=== PATIENT | male | born 1950 | race Caucasian/White ===

== ENCOUNTER 2016-02-25 01:03 | Inpatient (IN) | payer OTHER ==
[~2016-02-25] VITALS: Ht 175.3 cm; Wt 105.8 kg
--- NOTE | ~2016-02-25 | D ---
[facility] [place] [address] DISCHARGE SUMMARY Name: ERIN LEVINE Room #: 204-P [facility] IN M.R.#: [id number] Admission: 02/25/16 Attend Phys: Chucho Deras MD Discharge: 03/07/16 Date of : 46 Report #: [id number] THIS REPORT FOR: //name// CC: Valdemar Deras DATE OF SERVICE: 03/07/2016 The patient was discharged to the long-term facility on 03/07/2016. HISTORY OF PRESENT ILLNESS: The patient is a 66-year-old male with multiple medical problems, who came to the hospital with lethargy. He was found to have healthcare-associated pneumonia. Please refer to the admission H and P, as well as discharge summary from 03/05/2016. HOSPITALIZATION COURSE: The patient stayed in the hospital. His condition did not change. He stayed few more days secondary to placement problem. His IV antibiotics were changed to p.o. antibiotics, Zosyn was changed to Levaquin, that was continued for few more days. The patient's hospital stay was uneventful. His discharge diagnosis is unchanged, as it is stated on discharge summary from 03/05/2016. <ELECTRONICALLY SIGNED> By: Sonam Sevilla MD 03/31/16 1325 1513 1619 Sonam Sevilla MD /nt
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
--- NOTE | ~2016-02-25 | 2DMMODE ---
[facility] [place] [address] 2 D/M-MODE ECHOCARDIOGRAM Name: ABNERERIN ROBLEDO Room #: 204-P [facility] IN M.R.#: [id number] Admission: 02/25/16 Attend Phys: Floresita Delarosa Discharge: 03/07/16 Date of : 46 Date of Service: 03/01/16 1345 Report #: [id number] THIS REPORT FOR: //name// Transthoracic Echocardiography Ordering physician: Sonam Sevilla Referring physician: Valdemar Loaiza Nikoloz G. Block Feeder: RADHA Morgan Indications/History: CHF, COPD, SOA, DM, CAD, HTN, HLP. BP: 149 / HR: 73bpm Height: 69in Weight: 231.5lb 71 Study data: M-mode, complete 2D, complete spectral Doppler, and color Doppler. Location: Bedside. Routine. Image quality was adequate. The study was technically limited due to body habitus. Intravenous contrast (Definity) was administered. 2D measurements Normal Normal LVID ED 55.6mm 36-57 IVS ED 10.7mm 6-11 LVID ES 37.5mm 23-40 LVPW ED 10.9mm 6-11 LA volume 21ml/m2 16-28 AoRoot diam 27.8mm 21-37 index ED LVOT diameter 19mm 18-23 Findings: Left ventricle: The cavity size was normal. Wall thickness was at the upper limits of normal. Systolic function was normal. The estimated ejection fraction was in the range of 60% to 65%. Wall motion was normal. Right ventricle: The cavity size was normal. Systolic function was normal. Right atrium: The atrium was normal in size. Left atrium: The atrium was normal in size. Volume index: 21ml/m2 (S). Aortic valve: Structurally normal valve. Trileaflet. Doppler: There was no stenosis. No regurgitation. [facility] [address] [place] [address] 2 D/M-MODE ECHOCARDIOGRAM Name: ERIN LEVINE Room #: 204-P [facility] IN M.R.#: [id number] Admission: 02/25/16 Attend Phys: Floresita Delarosa Discharge: 03/07/16 Date of : 46 Date of Service: 03/01/16 1345 Report #: [id number] Peak velocity: 155.1cm/s (S). Mitral valve: Structurally normal valve. Doppler: There was no evidence for stenosis. No regurgitation. Peak E-wave velocity: 93.1cm/s. Peak gradient: 3.5mm Hg (D). Peak A-wave velocity: 86.3cm/s. Tricuspid valve: Structurally normal valve. Doppler: There was no evidence for stenosis. Trivial regurgitation. Regurgitant peak velocity: 260.4cm/s. Peak RV-RA gradient: 27mm Hg (S). Pulmonic valve: Structurally normal valve. Doppler: There was no evidence for stenosis. No regurgitation. Pericardium: There was no pericardial effusion. Aorta: Aortic root: The aortic root was normal in size. Pulmonary artery: Systolic pressure was estimated to be 42mm Hg. Diastolic function: Doppler parameters are consistent with abnormal left ventricular relaxation (grade 1 diastolic dysfunction). Systemic veins: Inferior vena cava: The vessel was dilated; respirophasic changes in dimension were absent. Conclusions 1. Left ventricle: Systolic function was normal. The estimated ejection fraction was in the range of 60% to 65%. Wall motion was normal. Doppler parameters are consistent with abnormal left ventricular relaxation (grade 1 diastolic dysfunction). 2. Aortic valve: Structurally normal valve. Trileaflet. There was no stenosis. No regurgitation. 3. Mitral valve: Structurally normal valve. No regurgitation. 4. Pericardium, extracardiac: There was no pericardial effusion. 5. Pulmonary arteries: Systolic pressure was estimated to be 42mm Hg. <ELECTRONICALLY SIGNED> By: Jag Loza MD, [facility] 03/01/16 1528 1345 1528 Jag Loza MD, [facility] /leona
[~2016-02-25 01:03] MED LIST: ABILIFY 5 MG TAB5 MG PO; ADVAIR 250-501 EACH INH; ADVAIR HFA 230M12 GM; ALBUTEROL2.5 MG/0.5 INH; ARICEPT 5 MG TAB5 MG PO; ASPERCREME 1141.7 GM; ASPIRIN81 M2 PO; B-121000 MCG PO; B12INJ; B12INJ PO; BACTROBAN CREAM30 G1; BISCOLAX10 MG RECTAL; CARVEDILOL6.25 MG PO; COLACE100 MG PO; COZAAR 25 MG TA25 M1 PO; CYMBALTA60 MG PO; DEMADEX100 MG PO; DEMADEX20 MG PO; DOXYCYCLINE 10100 MG PO; DUONEB 2.5-0.5 M3 ML INH; ESCITALOPRAM OX10 MG PO; FISH OIL 1,0001 EAC5 PO; FLEET ENEMA118 ML RECTAL; HUMALOG KW200 UNIT/1 SUBQ; HUMALOG100 UNIT/1 SUBQ; HUMULINU500 SUBQ; HYDROCODON-ACE1 EA12; K-DUR 20 MEQ T20 MEQ PO; K-TAB ER20 MEQ PO; KEFLEX500 MG PO; KLOR-CON 1010 MEQ; KLOR-CON20 ME1; LEVEMIR SUBQ; LIORESAL 10 MG10 MG PO; LYRICA 75 MG CA75 MG PO; LYRICA150 MG PO; MELATONIN3 MG PO; METOLAZONE 5 MG5 MG PO; MULTI VITAMIN1 EACH PO; NITROGLYCERIN0.4 MG SUBLING; NITROSTAT0.4 MG SUBLING; NIZORAL120 ML; NORVASC 5 MG TAB5 MG PO; NUVIGIL250 MG PO; OCUVITE TABLET1 EAC1 PO; ONDANSETRON HCL4 M2 PO; OPANA ER20 M1 PO; OXYCODONE HCL 55 MG PO; OXYCODONE HCL15 MG PO; OXYCONTIN10 M1 PO; OXYCONTIN15 MG PO; PANTOPRAZOLE SO40 M1 PO; PERCOCET 5-3251 EACH PO; POTASSIUM CHLO20 ME2 PO; PROAIR HFA8.5 GM; PROTONIX40 M2 PO; PROVIGIL 200 M200 M1 PO; RESTORIL15 MG PO; ROXICODONE5 M2 PO; SENNA PO; SEROQUEL XR50 MG PO; TORSEMIDE20 MG PO; TYLENOL325 MG PO; UNICOMPLEX M TA1 TA1 PO; VALIUM5 MG PO; VITAMIN B-12500 MCG PO; VITAMIN D-32000 UNIT PO; XANAX 0.5 MG0.5 M1 PO; XARELTO10 MG PO; ZOLOFT50 MG PO
[2016-02-25 01:04] VITALS: BP 173/77
[2016-02-25] MEDS ORDERED: ADVAIR HFA115 MCG/21 (01:28)
[2016-02-25] MEDS ORDERED: AMMONIUM LACTATE1 ML (01:29)
[2016-02-25] MEDS ORDERED: KETOCONAZOLE60 GM TOP (01:36)
[2016-02-25] MEDS ORDERED: ATIVAN0.5 MG PO (01:38)
[2016-02-25] MEDS ORDERED: OCUVITE LUTEIN1 EAC1 PO (01:40)
[2016-02-25] MEDS ORDERED: OMEPRAZOLE 20 M20 MG PO (01:41)
[2016-02-25] MEDS ORDERED: ZOFRAN ODT4 MG PO (01:41)
[2016-02-25 03:02] LABS: ABSOLUTE NEUTROPHILS 6.1 thou/uL (1.4-8.2); BASOPHILS 0.8 % (0.0-2.0); EOSINOPHILS 2.3 % (0.0-3.0); HEMATOCRIT 36.6 % (42.0-52.0); HEMOGLOBIN 11.9 gm/dL (14.0-18.0); LYMPHOCYTES 21.1 % (24.0-44.0); MCH 29.2 pg (26.0-34.0); MCHC 32.4 % (28.0-37.0); MCV 90.1 fL (80.0-100.0); MONOCYTES 9.1 % (1.0-8.0); POLYS 66.7 % (36.0-66.0); RBC 4.07 mil/uL (4.50-6.00); RDW 14.3 % (10.5-14.5); WBC 9.2 thou/uL (4.0-11.0)
[2016-02-25 03:08] LABS: CALCIUM 8.6 mg/dL (8.5-10.1); CREATININE 1.5 mg/dL (0.6-1.3); POTASSIUM 4.4 mmol/L (3.5-5.1)
[2016-02-25 03:23] LABS: MANUAL DIFF NO
[2016-02-25 04:07] VITALS: BP 154/79
[2016-02-25 04:18] VITALS: BP 149/77
[2016-02-25 06:32] LABS: LARGE PLATELETS RARE; PLATELET COUNT 140 thou/uL (150-400)
[2016-02-25 08:25] VITALS: BP 153/70
[2016-02-25 09:49] LABS: ALBUMIN 2.9 g/dL (3.4-5.0); DIRECT BILIRUBIN 0.1 mg/dL (<0.1-0.3); TOTAL BILIRUBIN 0.2 mg/dL (<0.1-1.0); TOTAL PROTEIN 6.5 g/dL (6.4-8.2)
[2016-02-25 11:40] VITALS: BP 145/66
[2016-02-25 16:00] VITALS: BP 172/76
[2016-02-26 05:04] VITALS: BP 160/87
[2016-02-26 08:00] VITALS: BP 159/72
[2016-02-26 09:38] LABS: CREATININE 1.4 mg/dL (0.6-1.3); MAGNESIUM 2.3 mg/dL (1.8-2.4); POTASSIUM 4.9 mmol/L (3.5-5.1)
[2016-02-26 11:40] VITALS: BP 158/81
[2016-02-26 16:30] VITALS: BP 176/80
[2016-02-26 19:31] VITALS: BP 144/73
[2016-02-27 01:40] LABS: ABSOLUTE NEUTROPHILS 3.8 thou/uL (1.4-8.2); BASOPHILS 0.6 % (0.0-2.0); EOSINOPHILS 2.7 % (0.0-3.0); HEMATOCRIT 34.3 % (42.0-52.0); HEMOGLOBIN 11.1 gm/dL (14.0-18.0); LYMPHOCYTES 19.7 % (24.0-44.0); MCH 29.2 pg (26.0-34.0); MCHC 32.5 % (28.0-37.0); MONOCYTES 11.4 % (1.0-8.0); PLATELET COUNT 127 thou/uL (150-400); POLYS 65.6 % (36.0-66.0); RBC 3.81 mil/uL (4.50-6.00); RDW 13.8 % (10.5-14.5); WBC 5.8 thou/uL (4.0-11.0)
[2016-02-27 01:42] LABS: MANUAL DIFF NO
[2016-02-27 01:47] LABS: CALCIUM 8.3 mg/dL (8.5-10.1); CREATININE 1.5 mg/dL (0.6-1.3); MAGNESIUM 2.2 mg/dL (1.8-2.4)
[2016-02-27 01:51] LABS: POTASSIUM 3.9 mmol/L (3.5-5.1)
[2016-02-27 03:23] VITALS: BP 195/87
[2016-02-27 07:40] VITALS: BP 173/70
[2016-02-27 12:10] VITALS: BP 168/84
[2016-02-27 16:45] VITALS: BP 160/79
[2016-02-27 19:45] VITALS: BP 145/101
[2016-02-27 23:30] VITALS: BP 181/91
[2016-02-28 04:49] LABS: CALCIUM 8.2 mg/dL (8.5-10.1); CREATININE 1.5 mg/dL (0.6-1.3); POTASSIUM 3.7 mmol/L (3.5-5.1)
[2016-02-28 05:10] VITALS: BP 193/92
[2016-02-28 07:55] VITALS: BP 194/97
[2016-02-28 08:00] LABS: ABSOLUTE NEUTROPHILS 4.5 thou/uL (1.4-8.2); BASOPHILS 0.7 % (0.0-2.0); EOSINOPHILS 4.7 % (0.0-3.0); HEMATOCRIT 34.1 % (42.0-52.0); HEMOGLOBIN 11.4 gm/dL (14.0-18.0); LYMPHOCYTES 18.7 % (24.0-44.0); MCH 29.6 pg (26.0-34.0); MCHC 33.4 % (28.0-37.0); MCV 88.6 fL (80.0-100.0); MONOCYTES 10.6 % (1.0-8.0); PLATELET COUNT 137 thou/uL (150-400); POLYS 65.3 % (36.0-66.0); RBC 3.85 mil/uL (4.50-6.00); RDW 14.5 % (10.5-14.5); WBC 6.9 thou/uL (4.0-11.0)
[2016-02-28 08:03] LABS: MANUAL DIFF NO
[2016-02-28 12:00] VITALS: BP 190/90
[2016-02-28 16:35] VITALS: BP 192/86
[2016-02-28 19:32] VITALS: BP 145/62
[2016-02-29] VITALS (7 sets, daily range): BP systolic 147–214; BP diastolic 57–92
[2016-02-29 04:13] LABS: CALCIUM 8.9 mg/dL (8.5-10.1); CREATININE 1.5 mg/dL (0.6-1.3); POTASSIUM 3.3 mmol/L (3.5-5.1)
[2016-02-29 08:46] LABS: URINE BILIRUBIN NEGATIVE (Negative); URINE BLOOD TRACE (Negative); URINE COLOR YELLOW; URINE GLUCOSE-RANDOM* NEGATIVE (Negative); URINE KETONES NEGATIVE (Negative); URINE NITRITE NEGATIVE (Negative); URINE PROTEIN (DIPSTICK) TRACE (Negative); URINE UROBILINOGEN 0.2 E.U./dl (0.2-1.0)
[2016-03-01 05:11] VITALS: BP 186/93
[2016-03-01 07:35] VITALS: BP 149/71
[2016-03-01 11:40] VITALS: BP 141/71
[2016-03-01 16:00] VITALS: BP 158/79
[2016-03-01 19:42] VITALS: BP 154/80
[2016-03-02 03:40] VITALS: BP 157/76
[2016-03-02 04:00] LABS: BASOPHILS 0.7 % (0.0-2.0); EOSINOPHILS 3.1 % (0.0-3.0); HEMATOCRIT 35.8 % (42.0-52.0); HEMOGLOBIN 11.7 gm/dL (14.0-18.0); LYMPHOCYTES 25.3 % (24.0-44.0); MCH 29.6 pg (26.0-34.0); MCHC 32.6 % (28.0-37.0); MCV 90.9 fL (80.0-100.0); MONOCYTES 11.5 % (1.0-8.0); PLATELET COUNT 149 thou/uL (150-400); POLYS 59.4 % (36.0-66.0); RBC 3.93 mil/uL (4.50-6.00); RDW 14.9 % (10.5-14.5); WBC 8.5 thou/uL (4.0-11.0)
[2016-03-02 04:02] LABS: CALCIUM 8.4 mg/dL (8.5-10.1); CREATININE 1.9 mg/dL (0.6-1.3); POTASSIUM 3.4 mmol/L (3.5-5.1)
[2016-03-02 04:05] LABS: MANUAL DIFF NO
[2016-03-02 07:22] VITALS: BP 258/83
[2016-03-02 11:16] VITALS: BP 164/70
[2016-03-02 16:14] VITALS: BP 163/83
[2016-03-02 20:02] VITALS: BP 132/72
[2016-03-03 03:25] LABS: ABSOLUTE NEUTROPHILS 5.4 thou/uL (1.4-8.2); BASOPHILS 0.8 % (0.0-2.0); HEMATOCRIT 34.3 % (42.0-52.0); HEMOGLOBIN 11.1 gm/dL (14.0-18.0); LYMPHOCYTES 21.5 % (24.0-44.0); MCH 29.4 pg (26.0-34.0); MCHC 32.4 % (28.0-37.0); MCV 90.9 fL (80.0-100.0); MONOCYTES 8.7 % (1.0-8.0); PLATELET COUNT 130 thou/uL (150-400); RBC 3.77 mil/uL (4.50-6.00); RDW 14.5 % (10.5-14.5); WBC 8.2 thou/uL (4.0-11.0)
[2016-03-03 03:47] LABS: MANUAL DIFF NO
[2016-03-03 03:51] VITALS: BP 167/79
[2016-03-03 03:53] LABS: CALCIUM 8.3 mg/dL (8.5-10.1); CREATININE 1.9 mg/dL (0.6-1.3); POTASSIUM 3.3 mmol/L (3.5-5.1)
[2016-03-03 09:43] VITALS: BP 160/70
[2016-03-03 13:00] VITALS: BP 150/65
[2016-03-03 17:39] VITALS: BP 172/93
[2016-03-03 21:00] VITALS: BP 167/90
[2016-03-04 03:44] VITALS: BP 165/78
[2016-03-04 07:50] VITALS: BP 156/77
[2016-03-04 11:15] VITALS: BP 136/43
[2016-03-04 16:30] VITALS: BP 119/52; BP 165/82
[2016-03-04 19:23] VITALS: BP 180/85
[2016-03-05 08:00] VITALS: BP 179/89
[2016-03-05] MEDS ORDERED: XARELTO10 MG PO (10:30)
[2016-03-05] MEDS ORDERED: CYMBALTA60 MG PO (10:30)
[2016-03-05] MEDS ORDERED: XANAX 0.5 MG0.5 M1 PO (10:30)
[2016-03-05] MEDS ORDERED: PERCOCET 5-3251 EACH PO (10:30)
[2016-03-05] MEDS ORDERED: CARVEDILOL12.5 MG PO (10:30)
[2016-03-05] MEDS ORDERED: LYRICA 75 MG CA75 MG PO (10:30)
[2016-03-05] MEDS ORDERED: NORVASC10 MG PO (10:30)
[2016-03-05] MEDS ORDERED: LEVAQUIN 500 M500 M3 PO (10:30)
[2016-03-05] MEDS ORDERED: COZAAR 50 MG TA50 M1 PO (10:30)
[2016-03-05 12:00] VITALS: BP 154/78
[2016-03-05 16:00] VITALS: BP 188/70
[2016-03-05 21:20] VITALS: BP 162/88
[2016-03-06 08:12] VITALS: BP 151/76
[2016-03-06 11:50] VITALS: BP 144/66
[2016-03-06 16:30] VITALS: BP 126/63
[2016-03-06 20:11] VITALS: BP 152/89
[2016-03-07 04:10] VITALS: BP 155/81
[2016-03-07 10:07] VITALS: BP 160/80
[2016-03-15] MEDS ORDERED: ZANTAC 150MG T150 MG PO (06:05)
[2016-03-15] MEDS ORDERED: MUCINEX TA600 MG/TA2 PO (06:14)
[2016-03-15] MEDS ORDERED: ACIDOPHILUS100 M1 PO (06:15)
[2016-03-15] MEDS ORDERED: DOXYCYCLINE 10100 MG PO (06:15)
[2016-03-15] MEDS ORDERED: OCUVITE LUTEIN1 EAC1 PO (06:17)
[2016-03-15] MEDS ORDERED: NYAMYC15 GM (06:18)
[2016-03-18] MEDS ORDERED: TAMIFLU30 MG PO (13:54)
[2016-03-18] MEDS ORDERED: BENZONATATE100 MG PO (14:01)
[2016-03-18] MEDS ORDERED: DELSYM COU30 MG/5 M1 PO (14:01)
[2016-03-18] MEDS ORDERED: PREDNISONE 10 M10 MG PO (14:01)
[2016-03-18] MEDS ORDERED: HUMALOG100 UNIT/1 SUBQ (14:01)
[2016-03-20] MEDS ORDERED: PERCOCET PO (20:25)
[2016-03-20] MEDS ORDERED: ADVAIR 100-501 EACH INH (20:37)
[2016-03-20] MEDS ORDERED: POTASSIUM20 PO (20:48)
[2016-03-20] MEDS ORDERED: VITAMIN D3400 UNIT PO (20:49)
[2016-03-20] MEDS ORDERED: TAMIFLU30 MG PO (20:52)
[2016-03-20] MEDS ORDERED: 12-HOUR CO30 MG/5 ML PO (20:52)
[2016-03-20] MEDS ORDERED: VALIUM5 MG PO (20:56)
[2016-03-20] MEDS ORDERED: PREDNISONE 10 M10 MG (20:58)
[2016-03-20] MEDS ORDERED: VITAMIN D31000 UNI2 PO (21:01)
== END 2016-03-07 15:22 | DRG 177 ==
LOC: ER 01:03 → 2N 02:35 → EROBS 02:35 → 2N 04:20
PROVIDERS: Emergency Medicine; Internal Medicine; Internal Medicine Endocrinology, Diabetes & Metabolism; Nurse Practitioner
PROC: 5A09457 Assistance with Respiratory Ventilation, 24-96 Consecutive Hours, Continuous Positive Airway Pressure (ICD-10-PCS; principal; 2016-03-02)
DX: J15.6 Pneumonia due to other Gram-negative bacteria (principal); G93.40 Encephalopathy, unspecified; J96.21 Acute and chronic respiratory failure with hypoxia; J96.22 Acute and chronic respiratory failure with hypercapnia; I50.33 Acute on chronic diastolic (congestive) heart failure; I13.0 Hypertensive heart and chronic kidney disease with heart failure and stage 1 through stage 4 chronic kidney disease, or unspecified chronic kidney disease; I25.10 Atherosclerotic heart disease of native coronary artery without angina pectoris; J44.9 Chronic obstructive pulmonary disease, unspecified; G47.33 Obstructive sleep apnea (adult) (pediatric); E11.42 Type 2 diabetes mellitus with diabetic polyneuropathy; D69.6 Thrombocytopenia, unspecified; N40.0 Benign prostatic hyperplasia without lower urinary tract symptoms; E87.6 Hypokalemia; F11.90 Opioid use, unspecified, uncomplicated; G89.29 Other chronic pain; N18.3 Chronic kidney disease, stage 3 (moderate); E11.22 Type 2 diabetes mellitus with diabetic chronic kidney disease; F43.10 Post-traumatic stress disorder, unspecified; F31.9 Bipolar disorder, unspecified; E66.01 Morbid (severe) obesity due to excess calories; F41.9 Anxiety disorder, unspecified; E78.00 Pure hypercholesterolemia, unspecified; K21.9 Gastro-esophageal reflux disease without esophagitis; I25.2 Old myocardial infarction; Z68.34 Body mass index [BMI] 34.0-34.9, adult; Z87.820 Personal history of traumatic brain injury; Z95.5 Presence of coronary angioplasty implant and graft; Z98.890 Other specified postprocedural states; Z79.4 Long term (current) use of insulin; Z88.8 Allergy status to other drugs, medicaments and biological substances
CPT/HCPCS: 10081

== ENCOUNTER → 2016-05-19 | Outpatient (CLI) | payer OTHER ==
[~2016-05-19] MED LIST changes: +12-HOUR CO30 MG/5 ML PO; +ACIDOPHILUS100 M1 PO; +ADVAIR 100-501 EACH INH; +ADVAIR HFA115 MCG/21; +AMMONIUM LACTATE1 ML; +ATIVAN0.5 MG PO; +BENZONATATE100 MG PO; +CARVEDILOL12.5 MG PO; +COZAAR 50 MG TA50 M1 PO; +DELSYM COU30 MG/5 M1 PO; +KETOCONAZOLE60 GM TOP; +LEVAQUIN 500 M500 M3 PO; +MUCINEX TA600 MG/TA2 PO; +NORVASC10 MG PO; +NYAMYC15 GM; +OCUVITE LUTEIN1 EAC1 PO; +OMEPRAZOLE 20 M20 MG PO; +PERCOCET PO; +POTASSIUM20 PO; +PREDNISONE 10 M10 MG; +PREDNISONE 10 M10 MG PO; +TAMIFLU30 MG PO; +VITAMIN D31000 UNI2 PO; +VITAMIN D3400 UNIT PO; +ZANTAC 150MG T150 MG PO; +ZOFRAN ODT4 MG PO
== END ==
LOC: RAD 10:56 → SPEECH 10:56 → RAD 05-26 15:50
DX: R13.12 Dysphagia, oropharyngeal phase (principal)

== ENCOUNTER 2016-06-13 18:51 | Emergency (ER) | payer OTHER ==
[~2016-06-13] VITALS: Ht 175.3 cm; Wt 95.3 kg
== END 2016-06-13 21:26 | disposition home or self-care (01) ==
LOC: ER 18:51
DX: S70.01XA Contusion of right hip, initial encounter (principal); S40.011A Contusion of right shoulder, initial encounter; S60.211A Contusion of right wrist, initial encounter; Z88.5 Allergy status to narcotic agent; W06.XXXA Fall from bed, initial encounter; Y93.89 Activity, other specified; Y92.89 Other specified places as the place of occurrence of the external cause; Y99.9 Unspecified external cause status

== ENCOUNTER 2016-07-08 11:07 | Inpatient (IN) | payer OTHER ==
[~2016-07-08] VITALS: Ht 175.3 cm; Wt 96.6 kg
--- NOTE | ~2016-07-08 | EKG ---
[place] [address] [facility] [address] ELECTROCARDIOGRAM REPORT Name: ERIN LEVINE Room #: 315-P 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1950 Requested By: Nadir Madden Order Number: [id number] MD: Jag Loza Measurements Intervals [place] Rate: 88 P: 79 [place]: 220 QRS: 37 QRSD: 92 T: 26 QT: 372 QTc: 450 Interpretive Statements Sinus rhythm Multiform ventricular premature complexes Prolonged [place] interval Compared to ECG 03/16/2016 07:29:26 Ventricular premature complex(es) now present Electronically Signed On 07-09-2016 11:26:09 CDT by Jag Loza [email or web address] <ELECTRONICALLY SIGNED> By: Jag Loza MD, [facility] 07/09/16 1126 1108 1108 Jag Loza MD, [facility] /EPI
--- NOTE | ~2016-07-08 | CATHLAB ---
[facility] [place] [address] INVASIVE PROCEDURE REPORT Name: CHERRYERIN ARAGON MEENA Room #: 204-P [facility] IN .R.#: [id number] Admission: 07/09/16 Attend Phys: Tristan Gilmore, Discharge: Date of : 46 Date of Service: 07/11/16 0827 Report #: [id number] THIS REPORT FOR: //name// CC: Tristan Rosenberg PROCEDURE: Left heart coronary angiography. INDICATIONS: Chest pain, unstable angina. DESCRIPTION OF PROCEDURE: The potential benefits and risks of the procedure were discussed at length with the patient who understood. Full written and informed consent was obtained. The patient was brought into the catheterization suite, where his right groin was prepped and draped in a sterile fashion. He was sedated with intravenous Versed, 1% Xylocaine was used as local anesthetic. A 6-[place] Citizen sheath was placed in the right femoral artery by the modified Seldinger technique. Left heart catheterization was performed with a 6-[place] Citizen angled pigtail catheter. A single plain ventriculogram was performed in the LEIVA view. Pullback gradients were measured across the aortic valve. Selective coronary angiography was performed with a 6-[place] Citizen left and right 4 cm Iraida coronary catheter. All diagnostic catheters were removed. An ACT was assessed. A hand injection was performed to the right groin sheath with placement of a Mynx device upon removal of the sheath. The patient remained in excellent condition at the conclusion of the procedure with good right groin hemostasis and intact distal pulses. RESULTS: LEFT HEART HEMODYNAMICS: 1. Left ventricular systolic pressure of 140. 2. Left ventricular end diastolic pressure of 18. 3. Aortic valve, no gradient was present on pullback across the aortic valve, central aortic pressure of 140/70. ANGIOGRAPHY: LEFT VENTRICULOGRAM: Ventriculography demonstrated normal to hyperdynamic global and regional left ventricular systolic function, mitral regurgitation was absent. Ejection fraction was estimated at 70%. SELECTIVE CORONARY ANGIOGRAPHY: 1. Left main: Left main was normal. 2. Left anterior descending: The left anterior descending was a moderate size vessel that extended to the distal anterior wall. The LAD gave rise to a high proximal diagonal branch, which exhibited mild plaquing. There was a ramus branch that was occluded proximally. This vessel looks small in caliber. 3. Circumflex: The circumflex was large, but nondominant. The first marginal branch was subtotally occluded and filled by faint ajjx-is-ibve collateralization, the second marginal branch exhibited mild plaquing. [facility] [address] [place] [address] INVASIVE PROCEDURE REPORT Name: ERIN LEVINE Room #: 204-P [facility] IN M.R.#: [id number] Admission: 07/09/16 Attend Phys: Tristan Gilmore, Discharge: Date of : 46 Date of Service: 07/11/16 0827 Report #: [id number] 4. The right coronary was dominant. The proximal right coronary had been previously stented. The mid right coronary exhibited an 85% stenosis. Just before the bifurcation of the distal right coronary into the posterior descending and posterolateral branches, there was a 30-40% stenosis. POSTANGIOPLASTY AND STENTING: The mid right coronary was ballooned with a 2.5 x 12 mm Euphora balloon. Balloon was removed and then stented with a 3.0 x 15 mm Resolute stent. The stent was postdilated with a 3.25 x 12 mm NC Trek, postdilated to close to 3.5 mm. There were 3 inflations in upwards of 22 atmospheres. SUMMARY: 1. Normal to hyperdynamic global and regional left ventricular systolic function, ejection fraction 75%. 2. Normal left main. 3. Mild plaquing of the left anterior descending. 4. The ramus branch was occluded proximally. This vessel appeared small and thready in caliber. 5. The circumflex was large, but nondominant. The first marginal branch was occluded and filled by faint kjou-mt-xtuo collateralization, neither the marginal branch and ramus would have been amenable to intervention. 6. The right coronary exhibited a severe mid vessel stenosis successfully stented with a 3.0 x 15 mm Resolute stent postdilated to close to 3.5 mm with a noncompliant balloon. <ELECTRONICALLY SIGNED> By: Jag Loza MD, [facility] 07/12/16 0758 0827 1100 Jag Loza MD, FAC /nt
--- NOTE | ~2016-07-08 | EKG ---
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
--- NOTE | ~2016-07-08 | 2DMMODE ---
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 Room #: 315 Blood Pressure: 156/71 mmHg HR: 71 bpm Rhythm: NSR Other Information Study Quality: Adequate Indications Chest Pain Hx: NE, stent, heart failure, DM, HTN 2D Dimensions RVDd: 39.87 mm LVEF(%): 63.42 (>50%) IVSd: 12.87 (7-11mm) LVOT Diam: 20.93 (18-24mm) LVDd: 44.95 mm PWd: 12.14 (7-11mm) Ascending Ao: 29.35 (22-36mm) LVDs: 29.55 (25-40mm) Aortic Root: 34.14 mm Esteves's LVEF: 63.42 % Volumes Left Atrial Volume (Systole) Single Plane 4CH: 60.30 mL Single Plane 2CH: 46.38 mL LA ESV Index: 26.00 mL/m2 Aortic Valve AoV Peak Krunal.: 1.55 m/s AO Peak Gr.: 9.60 mmHg LVOT Max P.60 mmHg LVOT Max V: 1.47 m/s TAYLOR Vmax: 3.25 cm2 Mitral Valve [facility] [place] [place] [address] 2 D/M-MODE ECHOCARDIOGRAM Name: CHERRYMAHESHERIN MEENA Room #: 315-P [facility] IN .R.#: [id number] Admission: 07/08/16 Attend Phys: Tristan Gilmore, Discharge: Date of : 46 Date of Service: 07/09/16 1104 Report #: [id number] E/A Ratio: 1.4 MV Decel. Time: 187.15 ms MV E Max Krunal.: 0.85 m/s MV A Krunal.: 0.62 m/s MV PHT: 54.27 ms IVRT: 62.28 ms Pulmonary Valve PV Peak Krunal.: 1.49 m/s PV Peak Gr.: 8.82 mmHg Pulmonary Vein P Vein S: 0.45 m/s P Vein A: 0.27 m/s P Vein D: 0.36 m/s P Vein A Dur.: 100.3 msec P Vein S/D Ratio: 1.25 Tricuspid Valve TR Peak Krunal.: 2.73 m/s RAP Estimate: 10.00 mmHg TR Peak Gr.: 29.74 mmHg RVSP: 40.00 mmHg Left Ventricle The left ventricle is normal size. There is normal LV segmental wall motion. Mild concentric left ventricular hypertrophy. Left ventricular systolic function is normal. LVEF is 60-65%. Grade II - pseudonormal filling dynamics. Right Ventricle The right ventricle is normal size. The right ventricular systolic function is normal. Atria The left atrium size is normal. The right atrium size is normal. Aortic Valve The aortic valve is normal in structure. No aortic regurgitation is present. There is no aortic valvular stenosis. Mitral Valve The mitral valve is normal in structure. Trace mitral regurgitation. Tricuspid Valve The tricuspid valve is normal in structure. There is trace tricuspid regurgitation. The right atrial pressure is estimated at 10 mmHg. There is mild-moderate pulmonary hypertension with an estimated PAP of 40mmHg. [address] [address] 2 D/M-MODE ECHOCARDIOGRAM Name: ERIN LEVINE Room #: 315-P [facility] IN [facility]#: [id number] Admission: 07/08/16 Attend Phys: Tristan Gilmore, Discharge: Date of : 46 Date of Service: 07/09/16 1104 Report #: [id number] Pulmonic Valve The pulmonary valve is normal in structure. Trace pulmonic regurgitation. Great Vessels The aortic root is normal in size. The ascending aorta is normal in size. IVC is dilated and collapses >50% with inspiration. Pericardium There is no pericardial effusion. <Conclusion> Left ventricular systolic function is normal. There is normal LV segmental wall motion. LVEF 60-65%. Grade II - pseudonormal filling dynamics. The aortic valve is normal in structure. No aortic regurgitation or stenosis The mitral valve is normal in structure. Trace mitral regurgitation. There is no pericardial effusion. <ELECTRONICALLY SIGNED> By: Jag Loza MD, [facility] 07/09/16 1104 1104 1104 Jag Loza MD, [facility]ACC /INF
--- NOTE | ~2016-07-08 | EKG ---
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
--- NOTE | ~2016-07-08 | HC ---
[facility] [address] [place] [address] CONSULTATION Name: ERIN LEVINE Room #: 204-P [facility] IN M.R.#: [id number] Admission: 07/09/16 Attend Phys: Tristan Gilmore DO Discharge: Date of : 46 Report #: [id number] THIS REPORT FOR: //name// CC: Tristan Rosenberg REASON FOR CONSULTATION: Chest pain. HISTORY OF PRESENT ILLNESS: The patient is a 66-year-old with known coronary artery disease status post prior RCA stent, I believe in 2007. I saw the patient once in February 2016, when he presented with influenza. At that time, he had a troponin that had increased to 3.5. At that time, he underwent an echocardiogram with an EF of 60-65% and I thought the troponin elevation was from the flu. He has done well since then, but today was at [facility] where he currently resides and started having chest pressure, which radiate to his shoulder and left arm, reminiscent of the pain he experienced prior to his last stent. He reports that he received a sublingual nitro and the pain resolved. He is currently chest pain free. REVIEW OF SYSTEMS: GENERAL: No fevers or chills. HEENT: No blurred vision. CARDIOVASCULAR: As above. PULMONARY: No productive cough. GASTROINTESTINAL: No nausea or vomiting. GENITOURINARY: The patient has some chronic problems with urinating. ENDOCRINE: He is diabetic. NEUROLOGIC: He has chronic tremor. PAST MEDICAL HISTORY: 1. Coronary artery disease, status post stent to the RCA, either in 2007 or 2008. 2. Hypertension. 3. Diabetes. 4. Hyperlipidemia. 5. Chronic obstructive pulmonary disease. 6. Tremor. SOCIAL HISTORY: He does not smoke. 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 FAMILY HISTORY: Significant for father had [place]. ALLERGIES: MORPHINE. MEDICATIONS: Include torsemide, Xarelto, losartan, aspirin, amlodipine, , insulin, Coreg, and metolazone. [address] [address] CONSULTATION Name: ABNERERIN ROBLEDO Room #: 204-[facility] IN ..#: [id number] Admission: 07/09/16 Attend Phys: Tristan Gilmore DO Discharge: Date of : 46 Report #: [id number] PHYSICAL EXAMINATION: VITAL SIGNS: Temperature is 36.8, pulse 74, respiration 17, blood pressure 195/65, and sats 98%. LABORATORY DATA: Sodium 143, potassium 3.4, chloride 106, bicarb 28, BUN 11, creatinine 0.8, and glucose 542. White count 9.1, hemoglobin 10.7, and platelets 179. Troponin less than 0.04. BNP is 168. His 12-lead EKG, I personally reviewed shows sinus rhythm with no ischemic changes. Chest x-ray shows no acute process. ASSESSMENT AND PLAN: In summary, the patient is a 66-year-old presenting with chest heaviness and that is reminiscent of his prior coronary ischemia. Thus far, I have seen no ischemia on his EKG and his troponin is negative. We should rule him out for an myocardial infarction. I will hold his Xarelto. It is unclear why he is on Xarelto. He does not report a history of atrial fibrillation, nor any deep venous thrombosis or pulmonary embolisms. We will watch him over the weekend and possibly will require cath on Monday. We will follow. <ELECTRONICALLY SIGNED> By: Ankit Ibarra MD 07/11/16 1359 1813 0107 Ankit Ibarra MD /nt
[2016-07-08 11:07] VITALS: BP 163/64
[2016-07-08 14:05] LABS: ABSOLUTE NEUTROPHILS 5.9 thou/uL (1.4-8.2); BASOPHILS 0.6 % (0.0-2.0); EOSINOPHILS 1.9 % (0.0-3.0); HEMATOCRIT 31.3 % (42.0-52.0); HEMOGLOBIN 10.7 gm/dL (14.0-18.0); LYMPHOCYTES 24.9 % (24.0-44.0); MCH 30.2 pg (26.0-34.0); MCHC 34.2 g/dL (28.0-37.0); MCV 88.2 fL (80.0-100.0); MONOCYTES 7.9 % (1.0-8.0); PLATELET COUNT 179 thou/uL (150-400); POLYS 64.7 % (36.0-66.0); RBC 3.55 mil/uL (4.50-6.00); RDW 13.6 % (10.5-14.5); WBC 9.1 thou/uL (4.0-11.0)
[2016-07-08 14:06] LABS: MANUAL DIFF NO
[2016-07-08 14:25] LABS: ANION GAP 2 mmol/L (7-16); BUN 31 mg/dL (7-18); CALCIUM 8.6 mg/dL (8.5-10.1); CHLORIDE 96 mmol/L (98-107); CO2 35 mmol/L (21-32); CREATININE 1.5 mg/dL (0.7-1.3); NT-PRO BRAIN NAT PEPTIDE 168 pg/mL (<300); POTASSIUM 4.7 mmol/L (3.5-5.1); SODIUM 133 mmol/L (136-145); TROPONIN-I < 0.04 ng/mL (<0.04-0.07)
[2016-07-08 14:27] LABS: GLUCOSE 542 mg/dL (74-106)
[2016-07-08 16:27] VITALS: BP 151/74
[2016-07-08 17:10] VITALS: BP 195/67
[2016-07-08 17:49] LABS: CREATININE 0.8 mg/dL (0.7-1.3); POTASSIUM 3.4 mmol/L (3.5-5.1)
[2016-07-08 18:22] LABS: BASOPHILS 0.7 % (0.0-2.0); EOSINOPHILS 2.2 % (0.0-3.0); HEMATOCRIT 32.8 % (42.0-52.0); HEMOGLOBIN 11.2 gm/dL (14.0-18.0); LYMPHOCYTES 27.2 % (24.0-44.0); MCH 29.5 pg (26.0-34.0); MCHC 34.1 g/dL (28.0-37.0); MCV 86.6 fL (80.0-100.0); MONOCYTES 8.7 % (1.0-8.0); PLATELET COUNT 183 thou/uL (150-400); POLYS 61.2 % (36.0-66.0); RBC 3.79 mil/uL (4.50-6.00); RDW 13.5 % (10.5-14.5); WBC 8.1 thou/uL (4.0-11.0)
[2016-07-08 18:28] LABS: MANUAL DIFF NO
[2016-07-08 21:30] VITALS: BP 134/57
[2016-07-09 00:30] VITALS: BP 156/73
[2016-07-09 03:15] LABS: GLYCOHEMOGLOBIN (HGB A1C) 4.3 % (4.8-5.6)
[2016-07-09 05:40] VITALS: BP 156/71
[2016-07-09 08:00] VITALS: BP 177/78
[2016-07-09 10:49] LABS: CALCIUM 8.8 mg/dL (8.5-10.1); CREATININE 1.4 mg/dL (0.7-1.3)
[2016-07-09 10:50] LABS: POTASSIUM 4.5 mmol/L (3.5-5.1)
[2016-07-09 13:18] VITALS: BP 139/67
[2016-07-09 16:00] VITALS: BP 152/68
[2016-07-09 19:05] VITALS: BP 162/67
[2016-07-10 05:11] VITALS: BP 142/69
[2016-07-10 05:31] LABS: ABSOLUTE NEUTROPHILS 4.9 thou/uL (1.4-8.2); BASOPHILS 0.4 % (0.0-2.0); EOSINOPHILS 3.3 % (0.0-3.0); HEMATOCRIT 31.1 % (42.0-52.0); HEMOGLOBIN 10.5 gm/dL (14.0-18.0); MCH 29.7 pg (26.0-34.0); MCHC 33.7 g/dL (28.0-37.0); MCV 88.2 fL (80.0-100.0); MONOCYTES 8.7 % (1.0-8.0); PLATELET COUNT 170 thou/uL (150-400); POLYS 59.6 % (36.0-66.0); RBC 3.53 mil/uL (4.50-6.00); RDW 13.4 % (10.5-14.5); WBC 8.3 thou/uL (4.0-11.0)
[2016-07-10 05:39] LABS: MANUAL DIFF NO
[2016-07-10 05:47] LABS: CREATININE 1.3 mg/dL (0.7-1.3)
[2016-07-10 08:05] VITALS: BP 122/86
[2016-07-10 15:30] VITALS: BP 153/72
[2016-07-10 20:00] VITALS: BP 160/65
[2016-07-11] VITALS (12 sets, daily range): BP systolic 126–150; BP diastolic 51–74
[2016-07-11 05:23] LABS: ABSOLUTE NEUTROPHILS 5.6 thou/uL (1.4-8.2); BASOPHILS 0.4 % (0.0-2.0); EOSINOPHILS 2.4 % (0.0-3.0); HEMATOCRIT 31.4 % (42.0-52.0); HEMOGLOBIN 10.7 gm/dL (14.0-18.0); LYMPHOCYTES 28.1 % (24.0-44.0); MCH 29.7 pg (26.0-34.0); MCV 87.3 fL (80.0-100.0); MONOCYTES 8.4 % (1.0-8.0); PLATELET COUNT 162 thou/uL (150-400); POLYS 60.7 % (36.0-66.0); RDW 13.5 % (10.5-14.5); WBC 9.2 thou/uL (4.0-11.0)
[2016-07-11 05:27] LABS: CALCIUM 9.1 mg/dL (8.5-10.1); CREATININE 1.3 mg/dL (0.7-1.3); MANUAL DIFF NO; POTASSIUM 3.9 mmol/L (3.5-5.1)
[2016-07-12] VITALS: BP 140/57
[2016-07-12 00:26] VITALS: BP 143/63
[2016-07-12 03:14] LABS: ABSOLUTE NEUTROPHILS 7.8 thou/uL (1.4-8.2); BASOPHILS 0.2 % (0.0-2.0); EOSINOPHILS 0.5 % (0.0-3.0); HEMATOCRIT 29.4 % (42.0-52.0); LYMPHOCYTES 20.5 % (24.0-44.0); MCH 29.9 pg (26.0-34.0); MCV 87.7 fL (80.0-100.0); MONOCYTES 4.7 % (1.0-8.0); PLATELET COUNT 151 thou/uL (150-400); POLYS 74.1 % (36.0-66.0); RBC 3.35 mil/uL (4.50-6.00); RDW 13.4 % (10.5-14.5); WBC 10.5 thou/uL (4.0-11.0)
[2016-07-12 03:26] LABS: MANUAL DIFF NO
[2016-07-12 03:43] VITALS: BP 140/57
[2016-07-12 03:44] LABS: ANION GAP 5 mmol/L (7-16); BUN 31 mg/dL (7-18); CALCIUM 8.7 mg/dL (8.5-10.1); CHLORIDE 96 mmol/L (98-107); CHOLESTEROL 237 mg/dL (<200); CO2 36 mmol/L (21-32); CREATININE 1.4 mg/dL (0.7-1.3); GLUCOSE 279 mg/dL (74-106); HDL CHOLESTEROL 29 mg/dL (>40); LDL CHOLESTEROL 148 mg/dL (<100); POTASSIUM 4.4 mmol/L (3.5-5.1); SODIUM 137 mmol/L (136-145); TC:HDL 8.2 Ratio (Not establshd); TRIGLYCERIDE 304 mg/dL (<150); TROPONIN-I < 0.04 ng/mL (<0.04-0.07); VLDL 61 mg/dL (<40)
[2016-07-12 03:46] LABS: SERUM ASSESSMENT Clear
[2016-07-12 06:00] VITALS: BP 140/57
[2016-07-12 08:00] VITALS: BP 157/64
[2016-07-12] MEDS ORDERED: EFFIENT10 MG PO (10:13)
[2016-07-12] MEDS ORDERED: ATORVASTATIN CA40 MG PO (10:13)
== END 2016-07-12 14:18 | DRG 247 ==
LOC: ER 11:07 → EROBS 15:13 → ER 15:13 → 3N 16:40 → EROBS 16:52 → 3N 22:28 → 2N 07-11 09:02
PROVIDERS: Emergency Medicine; Family Medicine; Internal Medicine
PROC: 4A023N7 Measurement of Cardiac Sampling and Pressure, Left Heart, Percutaneous Approach (ICD-10-PCS; principal; 2016-07-11)
PROC: B2151ZZ Fluoroscopy of Left Heart using Low Osmolar Contrast (ICD-10-PCS; principal; 2016-07-11)
PROC: B2111ZZ Fluoroscopy of Multiple Coronary Arteries using Low Osmolar Contrast (ICD-10-PCS; principal; 2016-07-11)
PROC: 027034Z Dilation of Coronary Artery, One Artery with Drug-eluting Intraluminal Device, Percutaneous Approach (ICD-10-PCS; principal; 2016-07-11)
DX: I25.110 Atherosclerotic heart disease of native coronary artery with unstable angina pectoris (principal); N17.9 Acute kidney failure, unspecified; I13.0 Hypertensive heart and chronic kidney disease with heart failure and stage 1 through stage 4 chronic kidney disease, or unspecified chronic kidney disease; N18.9 Chronic kidney disease, unspecified; I50.9 Heart failure, unspecified; E11.22 Type 2 diabetes mellitus with diabetic chronic kidney disease; E11.65 Type 2 diabetes mellitus with hyperglycemia; E78.5 Hyperlipidemia, unspecified; J44.9 Chronic obstructive pulmonary disease, unspecified; R25.1 Tremor, unspecified; G89.29 Other chronic pain; M54.9 Dorsalgia, unspecified; N40.0 Benign prostatic hyperplasia without lower urinary tract symptoms; Z98.61 Coronary angioplasty status; I25.2 Old myocardial infarction; Z82.49 Family history of ischemic heart disease and other diseases of the circulatory system; Z88.5 Allergy status to narcotic agent; Z79.899 Other long term (current) drug therapy; Z90.49 Acquired absence of other specified parts of digestive tract

== ENCOUNTER 2016-07-12 20:14 | Emergency (ER) | payer OTHER ==
[~2016-07-12] VITALS: Ht 175.3 cm; Wt 104.3 kg
--- NOTE | ~2016-07-12 | EKG ---
[place] [address] [facility] [place] [address] ELECTROCARDIOGRAM REPORT Name: ERIN LEVINE [facility] [id number] Admission: 07/12/16 Attend Phys: Discharge: 07/13/16 Date of : 46 Report #: [id number] THIS REPORT FOR: //name// 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: [facility] : 1950 Requested By: Dayo Foy Order Number: [id number] MD: Jag Loza Measurements Intervals [place] Rate: 77 P: 18 [place]: 177 QRS: 11 QRSD: 94 T: 33 QT: 381 QTc: 432 Interpretive Statements Sinus rhythm Ventricular premature complex Compared to ECG 07/12/2016 06:31:39 Ventricular premature complex(es) now present Sinus bradycardia no longer present Electronically Signed On 07-13-2016 7:49:32 CDT by Jag Loza [email or web address] <ELECTRONICALLY SIGNED> By: Jag Loza MD, [facility] 07/13/16 0749 2024 23 Jag Loza MD, [facility] /EPI
[~2016-07-12 20:14] MED LIST changes: +ATORVASTATIN CA40 MG PO; +EFFIENT10 MG PO
[2016-07-12 20:35] LABS: ABSOLUTE NEUTROPHILS 8.7 thou/uL (1.4-8.2); BASOPHILS 0.5 % (0.0-2.0); EOSINOPHILS 0.4 % (0.0-3.0); HEMATOCRIT 29.3 % (42.0-52.0); HEMOGLOBIN 10.1 gm/dL (14.0-18.0); LYMPHOCYTES 19.8 % (24.0-44.0); MCH 30.3 pg (26.0-34.0); MCHC 34.5 g/dL (28.0-37.0); PLATELET COUNT 163 thou/uL (150-400); POLYS 73.3 % (36.0-66.0); RBC 3.33 mil/uL (4.50-6.00); RDW 13.7 % (10.5-14.5); WBC 11.9 thou/uL (4.0-11.0)
[2016-07-12 20:37] LABS: MANUAL DIFF NO
[2016-07-12 20:43] LABS: ANION GAP 3 mmol/L (7-16); BUN 36 mg/dL (7-18); CALCIUM 8.7 mg/dL (8.5-10.1); CHLORIDE 98 mmol/L (98-107); CO2 38 mmol/L (21-32); CREATININE 1.7 mg/dL (0.7-1.3); GLUCOSE 363 mg/dL (74-106); POTASSIUM 3.9 mmol/L (3.5-5.1); SODIUM 139 mmol/L (136-145)
[2016-07-12 20:54] LABS: ALBUMIN 3.2 g/dL (3.4-5.0); ALKALINE PHOSPHATASE 131 U/L (46-116); NT-PRO BRAIN NAT PEPTIDE 96 pg/mL (<300); SGOT 18 U/L (15-37); SGPT 28 U/L (30-65); TOTAL BILIRUBIN 0.2 mg/dL (<0.1-1.0); TOTAL PROTEIN 6.9 g/dL (6.4-8.2); TROPONIN-I < 0.04 ng/mL (<0.04-0.07)
== END 2016-07-13 00:48 | disposition home or self-care (01) ==
LOC: ER 20:14
PROVIDERS: Physician Assistant
DX: R07.9 Chest pain, unspecified (principal); E11.22 Type 2 diabetes mellitus with diabetic chronic kidney disease; I13.0 Hypertensive heart and chronic kidney disease with heart failure and stage 1 through stage 4 chronic kidney disease, or unspecified chronic kidney disease; N18.9 Chronic kidney disease, unspecified; I50.9 Heart failure, unspecified; N40.0 Benign prostatic hyperplasia without lower urinary tract symptoms; Z88.5 Allergy status to narcotic agent

== ENCOUNTER 2016-07-17 12:04 | Emergency (ER) | payer OTHER ==
[~2016-07-17] VITALS: Ht 175.3 cm; Wt 104.3 kg
[~2016-07-17 12:04] MED LIST changes: +NORCO 5-325 TA1 EACH PO
== END 2016-07-17 13:57 | disposition home or self-care (01) ==
LOC: ER 12:04
DX: S52.501A Unspecified fracture of the lower end of right radius, initial encounter for closed fracture (principal); G89.29 Other chronic pain; M54.9 Dorsalgia, unspecified; N40.0 Benign prostatic hyperplasia without lower urinary tract symptoms; I13.0 Hypertensive heart and chronic kidney disease with heart failure and stage 1 through stage 4 chronic kidney disease, or unspecified chronic kidney disease; E11.22 Type 2 diabetes mellitus with diabetic chronic kidney disease; N18.9 Chronic kidney disease, unspecified; I50.9 Heart failure, unspecified; X58.XXXA Exposure to other specified factors, initial encounter; Y93.89 Activity, other specified; Y92.89 Other specified places as the place of occurrence of the external cause; Y99.8 Other external cause status; Z95.5 Presence of coronary angioplasty implant and graft; Z79.4 Long term (current) use of insulin; Z88.5 Allergy status to narcotic agent

== ENCOUNTER 2016-07-18 23:10 | Inpatient (IN) | payer OTHER ==
[~2016-07-18] VITALS: Ht 175.3 cm; Wt 104.3 kg
--- NOTE | ~2016-07-18 | HC ---
[facility] [place] [address] CONSULTATION Name: ABNERERIN ROBLEDO Room #: 208-P [facility] IN M.R.#: [id number] Admission: 07/19/16 Attend Phys: Des Fields MD Discharge: 07/19/16 Date of : 48 Report #: [id number] THIS REPORT FOR: //name// CC: Des Narvaez DATE OF SERVICE: 07/19/2016 REASON FOR CONSULTATION: Chest pain. HISTORY OF PRESENT ILLNESS: The patient is a 66-year-old gentleman who has been seen by Dr. Ankit Ibarra and most recently admitted with chest discomfort. He has a history of known coronary artery disease with a right coronary stent in 2007 or 2008. In February of this year, he presented with influenza and respiratory failure and had a troponin increased to 3.5. His ejection fraction was normal. He then presented with chest discomfort last week from [facility] where he has been a longtime resident. Coronary angiography was undertaken, which demonstrated a normal ejection fraction, an occluded ramus and first marginal branch, both were small and "thready." Right coronary exhibited severe mid vessel disease successfully stented with a 3.0 x 15 mm medicated stent postdilated to 3.5 mm. This was on 07/09/2016. He was discharged back to [facility]. On Monday, he had a non-syncopal fall from the commode and broke his right arm. Following the fall, he had generalized aches and pains including musculoskeletal chest pain. He had an episode of midsternal chest discomfort yesterday and was treated with narcotics with some improvement. This pain lasted for about 2 hours and he presented to the Emergency Department. EKGs demonstrate no acute ST or T-wave changes. He denies orthopnea or paroxysmal nocturnal dyspnea. No history of palpitations, near syncope or syncope. MEDICATIONS: Include hydrocodone, carvedilol 12.5 mg twice daily, amlodipine 10 mg daily, losartan 50 mg daily, Lyrica 75 mg twice daily, oxycodone, prasugrel 10 mg daily, atorvastatin 40 mg daily, insulin, Provigil, torsemide 40 mg daily, Abilify 5 mg twice daily, sertraline 50 mg daily, potassium 20 mEq daily. PAST MEDICAL HISTORY: Medical records have been reviewed and include a history of coronary artery disease with recent stenting 1 week ago, chronic back pain, ankle fracture in 2015, diabetes, chronic kidney disease, diastolic heart failure. SOCIAL HISTORY: He is nonsmoker. 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 FAMILY HISTORY: Notable for father who had a myocardial infarction. REVIEW OF SYSTEMS: All systems negative except as that noted above. [facility] [address] [place] [address] CONSULTATION Name: ERIN LEVINE Room #: 208-P [facility] IN M.R.#: [id number] Admission: 07/19/16 Attend Phys: Des Fields MD Discharge: 07/19/16 Date of : 46 Report #: [id number] PHYSICAL EXAMINATION: GENERAL: A pleasant gentleman in no distress. VITAL SIGNS: Blood pressure is 150/68, heart rate 69 and regular. He is afebrile. HEENT: There are neither xanthelasma, subcutaneous xanthomata, oral mucosal or digital cyanosis or kyphoscoliosis present. CHEST: Clear to auscultation and percussion. CARDIOVASCULAR: Regular rate and rhythm with normal S1, S2. No murmurs or rubs. ABDOMEN: Soft and nontender. EXTREMITIES: Reveal trace edema. Radial pulses are 2+. NEUROLOGIC: He is alert with a nonfocal exam with right arm casted. LABORATORY DATA: Sodium is 137, potassium 5.1, creatinine 1.8, LDL 148, troponin is negative. White count 9.0, hemoglobin 10.9, hematocrit 32, platelet count 216. Chest x-ray demonstrates atelectasis. There is some point tenderness over the left fourth costochondral junction reproducing his discomfort. IMPRESSION: 1. Chest pain, noncardiac. 2. Coronary artery disease with medicated stenting of the right coronary; normal ejection fraction. 3. Diastolic heart failure, compensated. 4. Hypertension. 5. Diabetes. 6. Dyslipidemia. 7. Recent non-syncopal fall with right arm fracture. RECOMMENDATIONS: At this timeframe, the right coronary artery stent is either normal or completely closed, no in between. Serial EKGs have been normal. There is no evidence of stent thrombosis. He has been compliant with aspirin and Effient. Branch vessel disease was described in 2008 and I do not believe contributing to his chest discomfort. At this point, no further cardiovascular testing is needed. I have discussed these issues with the patient in detail. <ELECTRONICALLY SIGNED> By: Jag Loza MD, [facility] 07/20/16 0813 0820 1358 Jag Loza MD, FAC /nt
--- NOTE | ~2016-07-18 | EKG ---
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 : 1950 Requested By: Foreign Vences Order Number: [id number] MD: Jag Loza Measurements Intervals [place] Rate: 75 P: 5 [place]: 169 QRS: 6 QRSD: 90 T: 17 QT: 373 QTc: 417 Interpretive Statements Sinus rhythm Inferior infarct, old Baseline wander in lead(s) I,aVL,V2 Compared to ECG 07/12/2016 20:24:54 Ventricular premature complex(es) no longer present Electronically Signed On 07-19-2016 8:56:50 CDT by Jag Loza [email or web address] <ELECTRONICALLY SIGNED> By: Jag Loza MD, [facility] 07/19/16 0856 2315 2315 Jag Loza MD, [facility] /EPI
[2016-07-18 23:11] VITALS: BP 142/62
[2016-07-18 23:42] LABS: ABSOLUTE NEUTROPHILS 5.6 thou/uL (1.4-8.2); EOSINOPHILS 3.9 % (0.0-3.0); HEMATOCRIT 32.3 % (42.0-52.0); HEMOGLOBIN 10.9 gm/dL (14.0-18.0); MCH 29.4 pg (26.0-34.0); MCHC 33.7 g/dL (28.0-37.0); MCV 87.1 fL (80.0-100.0); MONOCYTES 8.9 % (1.0-8.0); PLATELET COUNT 216 thou/uL (150-400); POLYS 62.2 % (36.0-66.0); RBC 3.71 mil/uL (4.50-6.00); RDW 13.5 % (10.5-14.5)
[2016-07-18 23:45] LABS: MANUAL DIFF NO
[2016-07-18 23:52] LABS: ANION GAP 3 mmol/L (7-16); BUN 39 mg/dL (7-18); CALCIUM 8.9 mg/dL (8.5-10.1); CHLORIDE 98 mmol/L (98-107); CO2 36 mmol/L (21-32); CREATININE 1.8 mg/dL (0.7-1.3); GLUCOSE 352 mg/dL (74-106); POTASSIUM 5.1 mmol/L (3.5-5.1); SODIUM 137 mmol/L (136-145)
[2016-07-18 23:57] LABS: APTT 28.2 Seconds (24.5-32.8); PROTIME 10.6 Seconds (9.3-11.4)
[2016-07-19 00:03] LABS: ALBUMIN 3.1 g/dL (3.4-5.0); ALKALINE PHOSPHATASE 151 U/L (46-116); MAGNESIUM 2.2 mg/dL (1.8-2.4); NT-PRO BRAIN NAT PEPTIDE 104 pg/mL (<300); SGOT 19 U/L (15-37); SGPT 21 U/L (30-65); TOTAL BILIRUBIN 0.3 mg/dL (<0.1-1.0); TOTAL PROTEIN 7.3 g/dL (6.4-8.2); TROPONIN-I < 0.04 ng/mL (<0.04-0.07)
[2016-07-19 02:50] VITALS: BP 159/68
[2016-07-19 03:07] VITALS: BP 159/103
[2016-07-19 07:50] VITALS: BP 141/69
[2016-07-19 11:15] VITALS: BP 124/72
[2016-07-19 11:18] LABS: HEMATOCRIT 30.9 % (42.0-52.0); HEMOGLOBIN 10.5 gm/dL (14.0-18.0); MCH 29.6 pg (26.0-34.0); MCHC 33.9 g/dL (28.0-37.0); MCV 87.2 fL (80.0-100.0); RBC 3.54 mil/uL (4.50-6.00); RDW 12.9 % (10.5-14.5); WBC 7.7 thou/uL (4.0-11.0)
[2016-07-19 11:33] LABS: ANION GAP 2 mmol/L (7-16); BUN 38 mg/dL (7-18); CALCIUM 9.2 mg/dL (8.5-10.1); CHLORIDE 100 mmol/L (98-107); CO2 37 mmol/L (21-32); CREATININE 1.7 mg/dL (0.7-1.3); GLUCOSE 326 mg/dL (74-106); POTASSIUM 4.8 mmol/L (3.5-5.1); SODIUM 139 mmol/L (136-145); TROPONIN-I < 0.04 ng/mL (<0.04-0.07)
[2016-07-19 15:20] VITALS: BP 104/55
== END 2016-07-19 17:50 | DRG 313 ==
LOC: ER 23:10 → EROBS 07-19 02:16 → 2N 07-19 02:16
PROVIDERS: Emergency Medicine; Internal Medicine
DX: R07.89 Other chest pain (principal); I13.0 Hypertensive heart and chronic kidney disease with heart failure and stage 1 through stage 4 chronic kidney disease, or unspecified chronic kidney disease; I50.32 Chronic diastolic (congestive) heart failure; J96.11 Chronic respiratory failure with hypoxia; S42.301A Unspecified fracture of shaft of humerus, right arm, initial encounter for closed fracture; G20 Parkinson's disease; N18.3 Chronic kidney disease, stage 3 (moderate); E11.22 Type 2 diabetes mellitus with diabetic chronic kidney disease; N40.0 Benign prostatic hyperplasia without lower urinary tract symptoms; I25.10 Atherosclerotic heart disease of native coronary artery without angina pectoris; G89.29 Other chronic pain; E78.5 Hyperlipidemia, unspecified; M54.9 Dorsalgia, unspecified; F80.82 Social pragmatic communication disorder; J44.9 Chronic obstructive pulmonary disease, unspecified; Z82.49 Family history of ischemic heart disease and other diseases of the circulatory system; Z88.5 Allergy status to narcotic agent; Z79.899 Other long term (current) drug therapy; Z95.5 Presence of coronary angioplasty implant and graft; Z99.81 Dependence on supplemental oxygen; Z79.82 Long term (current) use of aspirin; Z87.81 Personal history of (healed) traumatic fracture; Z87.891 Personal history of nicotine dependence; W18.39XA Other fall on same level, initial encounter; Y93.89 Activity, other specified; Y92.89 Other specified places as the place of occurrence of the external cause; Y99.8 Other external cause status
CPT/HCPCS: 10081

== ENCOUNTER 2016-07-29 19:46 | Inpatient (IN) | payer OTHER ==
[~2016-07-29] VITALS: Ht 177.8 cm; Wt 90.7 kg
--- NOTE | ~2016-07-29 | H ---
[facility] [address] [place] [address] HISTORY AND PHYSICAL Name: ERIN LEVINE Room #: 430-P ADM IN M.R.#: [id number] Admission: 07/29/16 Attend Phys: Mauricio Garg MD Discharge: Date of : 48 Report #: [id number] THIS REPORT FOR: //name// CC: Mauricio Narvaez ATTENDING PHYSICIAN: Dr. Garg. PRIMARY CARE PHYSICIAN: Dr. Narvaez at [facility]. CHIEF COMPLAINT: Tremoring. HISTORY OF PRESENT ILLNESS: The patient is a 66-year-old male who was sent into the ER from [facility] where he was noted having increasing tremors. He does have somewhat of a baseline tremor but apparently this was a lot worse tonight. When he arrived, his temperature was 102.6. He was given Tylenol prior to arrival and his temperature is now normal. He was noted to have pneumonia and he has been admitted for further treatment. The patient is sleepy, but arousable and able to answer most questions. The patient is denying any current shortness of breath. He does say he has had a recent cough. He does have a recent right arm fracture. PAST MEDICAL HISTORY: Benign essential tremors, diastolic heart failure with an EF of 75% and grade 2 diastolic dysfunction, chronic kidney disease stage III, diabetes, BPH, ocular albinism, hypertension, chronic back pain, coronary artery disease with prior stents. PAST SURGICAL HISTORY: Ankle repair. ALLERGIES: MORPHINE causes worsening PTSD. HOME MEDICATIONS: [place] p.r.n., carvedilol 12.5 mg b.i.d., amlodipine 10 mg daily, losartan 50 mg daily, Lyrica 75 mg b.i.d., Xanax 0.25 mg q. 6 hours p.r.n., prasugrel, Lipitor, benzonatate, . SOCIAL HISTORY: The patient denies any alcohol, tobacco or drug use. FAMILY HISTORY: Noncontributory. REVIEW OF SYSTEMS: Twelve point review of systems was reviewed with the patient, otherwise negative unless stated in the HPI. PHYSICAL EXAMINATION: GENERAL: The patient is somewhat lethargic male in no acute distress. VITAL SIGNS: Temperature 36.7, heart rate 98, respirations 20, blood pressure is 144/62, oxygen 92% on 3 liters. HEENT: PERRLA. Sclerae are nonicteric. Oral mucosa is pink and moist. He [facility] [address] [place] [address] HISTORY AND PHYSICAL Name: ERIN LEVINE Room #: [address] [place] [address] [place] [facility].#: [id number] Admission: 07/29/16 Attend Phys: Mauricio Garg MD Discharge: Date of : 46 Report #: [id number] does have thrush with yellowish coating on his tongue. NECK: Supple, no JVD noted. CARDIOVASCULAR: Normal S1, S2. No murmurs, rubs or gallops. RESPIRATORY: Breath sounds are clear bilaterally. No wheezing or rhonchi. Breathing is nonlabored. ABDOMEN: Soft, obese, nontender, nondistended. He had positive bowel sounds. VASCULAR: Peripheral pulses are normal in all 4 extremities. SKIN: Intact. No rashes or lesions. NEUROLOGIC: The patient is alert and oriented x 3. Speech is clear. He is moving all extremities equally. He does have mild decreased strength in bilateral lower extremities. SKIN: He does have seborrheic keratosis across much of the face and scalp line. His feet have fungal growth on soles and into the toes. MUSCULOSKELETAL: There is a splint on the right forearm. LABS AND DIAGNOSTICS: Sodium 139, potassium 4.1, BUN is 27, creatinine 1.7. Lactate is 0.7, glucose 146. WBC 18, hemoglobin 10.9, platelets 197. UA was negative and chest x-ray showed persistent infiltrate in the left lingula and left lower lobe. ASSESSMENT AND PLAN: 1. Mild sepsis due to community-acquired pneumonia. We will continue with Levaquin and Zosyn and follow blood cultures. His white count is significantly elevated from the last time he was here when it was 7.7 at discharge. 2. Coronary artery disease. The patient denies any chest pain. Continue to monitor on telemetry. 3. Diabetes. Add sliding scale insulin. Resume home meds. 4. Hypertension. Blood pressure is stable, continue home meds. 5. Chronic kidney disease stage III. Creatinine is stable from previous labs. 6. Chronic hypoxic respiratory failure. The patient is at his baseline O2. Continue with breathing treatment. 7. Deep venous thrombosis prophylaxis. Place sequential compression devices. <ELECTRONICALLY SIGNED> By: ERNY Altamirano 07/31/16 0721 0832 1259 RENY Altamirano /nt
[2016-07-29 19:48] VITALS: BP 144/62
[2016-07-29] MEDS ORDERED: UNICOMPLEX M TA1 TA1 PO (20:19)
[2016-07-29] MEDS ORDERED: B12INJ PO (20:20)
[2016-07-29] MEDS ORDERED: OCUVITE EYE +1 EACH PO (20:23)
[2016-07-29] MEDS ORDERED: SALINE NASAL M126 ML NASAL (20:25)
[2016-07-29] MEDS ORDERED: HUMALOG100 UNIT/1 SUBQ (20:27)
[2016-07-29 20:48] LABS: URINE BILIRUBIN NEGATIVE (Negative); URINE BLOOD NEGATIVE (Negative); URINE COLOR YELLOW; URINE GLUCOSE-RANDOM* NEGATIVE (Negative); URINE KETONES NEGATIVE (Negative); URINE LEUKOCYTES-REFLEX NEGATIVE (Negative); URINE PROTEIN (DIPSTICK) NEGATIVE (Negative); URINE SPECIFIC GRAVITY <= 1.005 (1.003-1.035); URINE UROBILINOGEN 0.2 E.U./dl (0.2-1.0)
[2016-07-29 22:57] LABS: ABSOLUTE NEUTROPHILS 14.3 thou/uL (1.4-8.2); BASOPHILS 0.4 % (0.0-2.0); EOSINOPHILS 0.2 % (0.0-3.0); HEMATOCRIT 32.4 % (42.0-52.0); HEMOGLOBIN 10.9 gm/dL (14.0-18.0); LYMPHOCYTES 13.6 % (24.0-44.0); MCH 28.8 pg (26.0-34.0); MCHC 33.6 g/dL (28.0-37.0); MCV 85.9 fL (80.0-100.0); MONOCYTES 6.3 % (1.0-8.0); PLATELET COUNT 197 thou/uL (150-400); POLYS 79.5 % (36.0-66.0); RBC 3.78 mil/uL (4.50-6.00); RDW 13.3 % (10.5-14.5)
[2016-07-29 23:08] LABS: MANUAL DIFF NO
[2016-07-29 23:13] LABS: CALCIUM 9.2 mg/dL (8.5-10.1); CREATININE 1.7 mg/dL (0.7-1.3); POTASSIUM 4.1 mmol/L (3.5-5.1)
[2016-07-30 00:47] VITALS: BP 125/65
[2016-07-30 01:00] VITALS: BP 106/47
[2016-07-30 04:00] VITALS: BP 145/57
[2016-07-30 07:41] LABS: HEMATOCRIT 30.8 % (42.0-52.0); HEMOGLOBIN 10.3 gm/dL (14.0-18.0); MCH 29.1 pg (26.0-34.0); MCHC 33.4 g/dL (28.0-37.0); MCV 87.1 fL (80.0-100.0); RBC 3.54 mil/uL (4.50-6.00); RDW 13.5 % (10.5-14.5); WBC 16.1 thou/uL (4.0-11.0)
[2016-07-30 07:45] LABS: CREATININE 2.3 mg/dL (0.7-1.3); POTASSIUM 4.2 mmol/L (3.5-5.1)
[2016-07-30 07:57] VITALS: BP 119/50
[2016-07-30 20:30] VITALS: BP 166/65
[2016-07-31 05:30] VITALS: BP 118/46
[2016-07-31 06:26] LABS: HEMATOCRIT 28.8 % (42.0-52.0); HEMOGLOBIN 9.8 gm/dL (14.0-18.0); MCH 29.1 pg (26.0-34.0); MCV 85.6 fL (80.0-100.0); RBC 3.37 mil/uL (4.50-6.00); RDW 13.3 % (10.5-14.5)
[2016-07-31 06:36] LABS: CALCIUM 8.4 mg/dL (8.5-10.1); CREATININE 2.1 mg/dL (0.7-1.3); POTASSIUM 3.5 mmol/L (3.5-5.1)
[2016-07-31 09:40] VITALS: BP 118/46
[2016-07-31 16:07] VITALS: BP 101/41
[2016-08-01 04:00] VITALS: BP 114/90
[2016-08-01 07:19] VITALS: BP 176/135
[2016-08-01 15:33] VITALS: BP 108/46; BP 169/140
[2016-08-01 22:00] VITALS: BP 139/72
[2016-08-02 04:30] VITALS: BP 125/54
[2016-08-02 06:44] LABS: HEMATOCRIT 25.8 % (42.0-52.0); HEMOGLOBIN 8.9 gm/dL (14.0-18.0); MCH 29.5 pg (26.0-34.0); MCHC 34.4 g/dL (28.0-37.0); MCV 85.8 fL (80.0-100.0); RBC 3.01 mil/uL (4.50-6.00); RDW 13.4 % (10.5-14.5); WBC 10.1 thou/uL (4.0-11.0)
[2016-08-02 07:53] VITALS: BP 132/72
[2016-08-02] MEDS ORDERED: AUGMENTIN 875875 MG PO (09:30)
[2016-08-02] MEDS ORDERED: PERCOCET 5-3251 EACH PO (09:32)
== END 2016-08-02 13:41 | DRG 871 ==
LOC: ER 19:46 → EROBS 23:55 → 4E 23:55
PROVIDERS: Emergency Medicine; Hospitalist; Nurse Practitioner Acute Care
DX: A41.9 Sepsis, unspecified organism (principal); J15.9 Unspecified bacterial pneumonia; N17.0 Acute kidney failure with tubular necrosis; I13.0 Hypertensive heart and chronic kidney disease with heart failure and stage 1 through stage 4 chronic kidney disease, or unspecified chronic kidney disease; I50.30 Unspecified diastolic (congestive) heart failure; J96.11 Chronic respiratory failure with hypoxia; E70.319 Ocular albinism, unspecified; E11.22 Type 2 diabetes mellitus with diabetic chronic kidney disease; N18.3 Chronic kidney disease, stage 3 (moderate); N40.0 Benign prostatic hyperplasia without lower urinary tract symptoms; G89.29 Other chronic pain; M54.9 Dorsalgia, unspecified; I25.10 Atherosclerotic heart disease of native coronary artery without angina pectoris; E86.0 Dehydration; D64.9 Anemia, unspecified; R25.1 Tremor, unspecified; Z95.5 Presence of coronary angioplasty implant and graft; Z87.81 Personal history of (healed) traumatic fracture; Z88.6 Allergy status to analgesic agent; Z91.040 Latex allergy status; Z79.899 Other long term (current) drug therapy
CPT/HCPCS: 10084

== ENCOUNTER 2016-08-02 16:56 | Inpatient (IN) | payer OTHER ==
[~2016-08-02] VITALS: Ht 9 cm; Wt 102.2 kg
--- NOTE | ~2016-08-02 | H ---
[facility] [place] [address] [place] [address] HISTORY AND PHYSICAL Name: ERIN LEVINE Room #: 204-P ADM IN M.R.#: [id number] Admission: 08/02/16 Attend Phys: Sabrina Gardner Discharge: Date of : 46 Report #: [id number] THIS REPORT FOR: //name// CC: Sabrina Narvaez ATTENDING PHYSICIAN: Dr. Gardner. PRIMARY CARE PHYSICIAN: Dr. Narvaez at [facility]. CHIEF COMPLAINT: Low oxygen saturation. HISTORY OF PRESENT ILLNESS: The patient is a 66-year-old male who was just admitted here at [facility] last week for mild sepsis, felt to be due to pneumonia. This was considered healthcare-acquired pneumonia. He was treated initially with Levaquin and Zosyn and eventually was discharged earlier today on Augmentin. His blood cultures were negative. He was discharged back to [facility]. He normally wears 3 liters of oxygen at all times. He said last night he was assisted up to the commode and the oxygen did not reach, so he was off his oxygen for a period of time. When he was transferred back into bed, he was very short of breath. His nurse checked his oxygen saturation, it was 73%. She did place him back on his oxygen and his oxygen saturation was slow to improve. He had some chest tightness with this and stated "felt like my chest." He did complain of some shortness of breath. He denies any history of DVT or PE. He overall is not happy with his care at [facility]. He is very stressed with certain things going on there and has been looking at being transferred into another facility. He has been here multiple times in the recent past. Please see prior records. He does have a history of coronary artery disease. He just had a heart catheterization in June, which showed an EF of 75% with stent to the RCA, which was patent. The ramus was occluded proximally as well as the first marginal artery. He did not have any further intervention done. PAST MEDICAL HISTORY: Benign essential tremors, diastolic heart failure with grade 2 diastolic dysfunction, chronic kidney disease stage 3, diabetes, BPH, ocular albinism, hypertension, chronic back pain, coronary artery disease with prior stents and COPD. PAST SURGICAL HISTORY: Right ankle repair in 2014 and coronary stent times 2. ALLERGIES: MORPHINE causes worsening PTSD. HOME MEDICATIONS: Please see prior dictation as all his home meds are the same except for the addition of Augmentin. SOCIAL HISTORY: The patient denies any alcohol, tobacco or drug use. He normally gets around with his son who takes him in a wheelchair or with a [facility] [address] [place] [address] HISTORY AND PHYSICAL Name: ABNERERIN MEENA Room #: 204-P [facility] IN M.R.#: [id number] Admission: 08/02/16 Attend Phys: Sabrina Gardner Discharge: Date of : 46 Report #: [id number] scooter. He really has not been ambulatory for many months. He is . He did have a lot of exposure to secondhand smoke in the workplace in the past. 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 FAMILY HISTORY: Noncontributory. REVIEW OF SYSTEMS: He had a fall in April in which he sustained a fracture to his right arm. He still has yet to see orthopedic surgery to discuss surgical options. PHYSICAL EXAMINATION: GENERAL: The patient is an alert male in no acute distress. VITAL SIGNS: Temperature is 37.4, heart rate 75, respirations 18, blood pressure is 131/ , oxygen is 91% on room air. HEENT: PERRLA. He does have some horizontal nystagmus. Oral mucosa is pink and moist. NECK: Supple, no JVD noted. CARDIAC: Normal S1, S2. No murmurs, rubs or gallops. RESPIRATORY: Breath sounds are clear bilaterally. No wheezing or rhonchi. He is diminished in both bases, but breathing is nonlabored. ABDOMEN: Round, soft, nontender, nondistended with positive bowel sounds. VASCULAR: 1+ bilateral lower extremity edema. Pedal pulses are 2+. NEUROLOGIC: The patient is alert and oriented times 3. Speech is clear. He does have horizontal nystagmus which is chronic and he does have bilateral upper extremity essential tremors and otherwise he is moving all extremities equally. No focal weakness noted. PSYCHIATRIC: The patient is calm and cooperative. MUSCULOSKELETAL: He does have a splint to his right forearm. Right radial pulse is 2+. SKIN: He does have seborrheic keratosis across most of his face and scalp and some fungal growth on plantar side of both feet. LABORATORY DATA AND DIAGNOSTICS: WBC is 10.4, hemoglobin 9.4, platelets 190. Sodium is 138, potassium 4.6, BUN 37, creatinine 2.0, glucose 170. Alkaline phosphatase 259. Troponin 0.17 and albumin 2.6. Chest x-ray showed interval increase in the retrocardiac density suggesting pneumonia or atelectasis and EKG shows sinus rhythm. ASSESSMENT AND PLAN: 1. Acute on chronic hypoxic respiratory failure. Etiology for this is not completely clear. He was just discharged from the hospital today in stable condition after being treated for healthcare-acquired pneumonia. He does have a mildly elevated troponin. This could be related to his underlying cardiac issues and we also need to rule out pulmonary embolism. We will check a D-dimer and if elevated, check V/Q scan in the morning. We should also further evaluate this retrocardiac infiltrate that has been seen on multiple recent chest x-rays. [facility] [address] [place] [address] HISTORY AND PHYSICAL Name: ABNERERIN ROBLEDO Room #: 204-P [facility] IN .R.#: [id number] Admission: 08/02/16 Attend Phys: Sabrina Gardner Discharge: Date of : 46 Report #: [id number] We will also check a CT of the chest in the morning without contrast due to his elevated creatinine. Continue with oxygen at home and breathing treatments. 2. Mildly elevated troponin. He does have a history of coronary artery disease with prior stents. He did have elevation of troponins up to 4.39 in February, but last known troponin was normal. We will follow serial troponins and if they continue to elevate, consult Cardiology. He is denying any current chest pain. Continue to monitor on telemetry. 3. Chronic kidney disease stage 3. Creatinine has been climbing over the last month. Just in the last few weeks, he was as low as 1.3 and he is now up to 2.0. We will hold his diuretics and follow labs. 4. Diabetes. Blood sugar is stable. Add sliding scale insulin. 5. Hypertension. Blood pressure is stable. Continue home medications. 6. Deep venous thrombosis prophylaxis. Place sequential compression devices. We will also get case management involved because the patient is wanting to look into other facilities for long-term care. His stepson lives in [place] and is wanting him to be closer to him, so this may be a consideration. We will continue to follow the patient closely throughout the hospitalization and make changes based on clinical status. <ELECTRONICALLY SIGNED> By: RENY Altamirano 08/04/16 0729 0601 0911 RENY Altamirano /luis felipe
--- NOTE | ~2016-08-02 | EKG ---
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
[~2016-08-02 16:56] MED LIST changes: +AUGMENTIN 875875 MG PO; +OCUVITE EYE +1 EACH PO; +SALINE NASAL M126 ML NASAL
[2016-08-02 16:57] VITALS: BP 133/77
[2016-08-02 18:08] LABS: ABSOLUTE NEUTROPHILS 7.6 thou/uL (1.4-8.2); BASOPHILS 0.5 % (0.0-2.0); EOSINOPHILS 1.7 % (0.0-3.0); HEMATOCRIT 27.6 % (42.0-52.0); HEMOGLOBIN 9.4 gm/dL (14.0-18.0); LYMPHOCYTES 17.2 % (24.0-44.0); MCH 29.5 pg (26.0-34.0); MCHC 34.1 g/dL (28.0-37.0); MCV 86.6 fL (80.0-100.0); MONOCYTES 7.8 % (1.0-8.0); PLATELET COUNT 190 thou/uL (150-400); POLYS 72.8 % (36.0-66.0); RBC 3.18 mil/uL (4.50-6.00); RDW 13.3 % (10.5-14.5); WBC 10.4 thou/uL (4.0-11.0)
[2016-08-02 18:17] LABS: POTASSIUM 4.6 mmol/L (3.5-5.1)
[2016-08-02 18:25] LABS: MANUAL DIFF NO
[2016-08-02 18:27] LABS: ALBUMIN 2.6 g/dL (3.4-5.0); TOTAL BILIRUBIN 0.2 mg/dL (<0.1-1.0); TOTAL PROTEIN 7.3 g/dL (6.4-8.2); TROPONIN-I 0.17 ng/mL (<0.04-0.07)
[2016-08-02 21:41] VITALS: BP 104/46
[2016-08-02 21:59] VITALS: BP 153/69
[2016-08-02 23:22] VITALS: BP 152/75
[2016-08-03 03:22] VITALS: BP 129/70
[2016-08-03 07:52] VITALS: BP 138/69
[2016-08-03 12:18] VITALS: BP 120/57
[2016-08-03 16:27] VITALS: BP 129/57
[2016-08-03 19:42] VITALS: BP 153/65
[2016-08-04 03:42] VITALS: BP 132/64
[2016-08-04 07:49] VITALS: BP 136/77
[2016-08-04] MEDS ORDERED: HYDROCODONE-AP1 EAC6 PO (09:43)
[2016-08-04] MEDS ORDERED: XANAX 0.5 MG0.5 M1 PO (09:44)
[2016-08-04] MEDS ORDERED: VALIUM5 MG PO (09:44)
[2016-08-04 12:44] VITALS: BP 147/59
[2016-08-04 15:28] VITALS: BP 153/61
[2016-08-05 03:41] VITALS: BP 148/67
[2016-08-05 09:01] VITALS: BP 153/71
== END 2016-08-05 12:28 | DRG 193 ==
LOC: ER 16:56 → EROBS 19:09 → 2N 19:09
PROVIDERS: Physician Assistant
DX: J18.9 Pneumonia, unspecified organism (principal); J96.21 Acute and chronic respiratory failure with hypoxia; J44.0 Chronic obstructive pulmonary disease with (acute) lower respiratory infection; I13.0 Hypertensive heart and chronic kidney disease with heart failure and stage 1 through stage 4 chronic kidney disease, or unspecified chronic kidney disease; I50.30 Unspecified diastolic (congestive) heart failure; E70.319 Ocular albinism, unspecified; N40.0 Benign prostatic hyperplasia without lower urinary tract symptoms; G89.29 Other chronic pain; E11.22 Type 2 diabetes mellitus with diabetic chronic kidney disease; N18.3 Chronic kidney disease, stage 3 (moderate); M54.9 Dorsalgia, unspecified; I25.10 Atherosclerotic heart disease of native coronary artery without angina pectoris; F41.9 Anxiety disorder, unspecified; Z79.82 Long term (current) use of aspirin; Z98.62 Peripheral vascular angioplasty status; Z88.6 Allergy status to analgesic agent; Z91.040 Latex allergy status; Z79.899 Other long term (current) drug therapy; Z87.81 Personal history of (healed) traumatic fracture
CPT/HCPCS: 10081